=== PATIENT | male | born 2000 | race African-American/Black ===

== ENCOUNTER 2022-12-16 07:40 | Emergency (ER) | payer OTHER ==
--- NOTE | 2022-12-16 08:58 | RAD REPORT ---
EXAM DESCRIPTION: RAD - Chest Pa And Lat (2 Views) - 12/16/2022 8:51 am CLINICAL HISTORY: COUGH Chest pain. COMPARISON: <Comparisons> FINDINGS: The lungs are clear. The heart is normal in size. No displaced fractures. IMPRESSION: No acute or concerning finding suspected.
--- NOTE | 2022-12-16 09:02 | ER ---
Nurse's Notes [facility] Name: Jefferson Yip Age: 22 yrs Sex: Male : 2000 Arrival Date: 12/16/2022 Time: 07:40 Bed 20 Private MD: Diagnosis: Respiratory syncytial virus as the cause of diseases classified elsewhere Presentation: 12/16 07:50 Chief complaint: Patient states: Cough, sore throat, SOB started Tuesday. Coronavirus ll1 screen: Vaccine status: Patient reports receiving the 2nd dose of the covid vaccine. Client denies travel out of the [place] in the last 14 days. cough unrelated to allergies, difficulty breathing, sore throat, Client presents with at least one sign or symptom that may indicate coronavirus-19. Standard/surgical mask placed on the client. Ebola Screen: Patient denies travel to an Ebola-affected area in the 21 days before illness onset. Initial Sepsis Screen: Does the patient meet any 2 criteria? No. Patient's initial sepsis screen is negative. Does the patient have a suspected source of infection? Yes: Productive cough/pneumonia. Risk Assessment: Do you want to hurt yourself or someone else? Patient reports no desire to harm self or others. Onset of symptoms was December 14, 2022. 07:50 Method Of Arrival: Ambulatory ll1 07:50 Acuity: CONCHITA 4 ll1 Triage Assessment: 07:51 General: Appears in no apparent distress. Behavior is calm, cooperative, appropriate ll1 for age. Pain: Complains of pain in throat Quality of pain is described as aching. EENT: Reports nasal congestion pain when swallowing. Neuro: No deficits noted. Cardiovascular: No deficits noted. Respiratory: Reports shortness of breath cough that is. Historical: - Allergies: 07:49 No Known Allergies; ll1 - Home Meds: 07:49 None [Active]; ll1 - PMHx: 07:49 None; ll1 - PSHx: 07:49 None; ll1 - Immunization history:: Client reports receiving the 2nd dose of the Covid vaccine. - Social history:: Smoking status: Patient denies any tobacco usage or history of. Screenin:45 [facility] ED Fall Risk Assessment (Adult) History of falling in the last 3 months, kc6 including since admission No falls in past 3 months (0 pts) Confusion or Disorientation No (0 pts) Intoxicated or Sedated No (0 pts) Impaired Gait No (0 pts) Mobility Assist Device Used No (0 pt) Altered Elimination No (0 pt) Score/Fall Risk Level 0 - 2 = Low Risk Oriented to surroundings, Maintained a safe environment, Educated pt \\T\\ family on fall prevention, incl call for assistance when getting out of bed, Assessed \\T\\ reinforced patient's understanding of fall precautions, Hourly rounding (assess needs \\T\\ fall precautionary measures) done. Abuse screen: Denies threats or abuse. Denies injuries from another. Nutritional screening: No deficits noted. Tuberculosis screening: No symptoms or risk factors identified. Assessment: 07:48 General: Appears in no apparent distress. comfortable, Behavior is calm, cooperative, kc6 appropriate for age. Pain: Complains of pain in "sore throat". Neuro: Malik Agitation-Sedation Scale (RASS): 0 - Alert and Calm Level of Consciousness is awake, alert, obeys commands, Oriented to person, place, time, situation, Appropriate for age. Cardiovascular: Capillary refill < 3 seconds. Respiratory: Reports shortness of breath Airway is patent Trachea midline Respiratory effort is even, unlabored, Respiratory pattern is regular, symmetrical. GI: No signs and/or symptoms were reported involving the gastrointestinal system. : No signs and/or symptoms were reported regarding the genitourinary system. Derm: No signs and/or symptoms reported regarding the dermatologic system. Skin is intact, Skin is pink, warm \\T\\ dry. Musculoskeletal: No signs and/or symptoms reported regarding the musculoskeletal system. Circulation, motion, and sensation intact. Capillary refill < 3 seconds, Range of motion: intact in all extremities. 08:44 Reassessment: Patient appears in no apparent distress at this time. No changes from kc6 previously documented assessment. Patient and/or family updated on plan of care and expected duration. Pain level reassessed. Patient is alert, oriented x 3, equal unlabored respirations, skin warm/dry/pink. Vital Signs: 07:50 BP 125 / 65; Pulse 55; Resp 16; Temp 97.9; Pulse Ox 100% on R/A; Weight 79.83 kg; ll1 Height 6 ft. 1 in. ; 08:44 BP 109 / 69; Pulse 60; Resp 17 S; Pulse Ox 100% on R/A; kc6 07:50 Body Mass Index 23.22 (79.83 kg, 185.42 cm) ll1 ED Course: 07:42 Patient arrived in ED. im 07:45 Keo Masterson MD is Attending Physician. jr11 07:45 Latrice Mcgraw, RN is Primary Nurse. kc6 07:45 Patient has correct armband on for positive identification. Bed in low position. Call kc6 light in reach. Side rails up X 1. 07:50 Arm band placed on. kc6 07:51 Triage completed. ll1 07:59 RSV Sent. kc6 07:59 Influenza Screen (a \\T\\ B) Sent. kc6 07:59 COVID-19 SARS RT PCR Sent. kc6 08:53 Chest Pa And Lat (2 Views) XRAY In Process Unspecified. EDMS 09:09 No provider procedures requiring assistance completed. Patient did not have IV access kc6 during this emergency room visit. Administered Medications: No medications were administered Medication: 09:09 VIS not applicable for this client. kc6 Outcome: 09:02 Discharge ordered by . jr 09:09 Discharged to home ambulatory. kc6 09:09 Condition: stable 09:09 Discharge instructions given to patient, Instructed on discharge instructions, follow up and referral plans. medication usage, Demonstrated understanding of instructions, follow-up care, medications, Prescriptions given X 2. 09:09 Patient left the ED. kc6 Signatures: Dispatcher [employer] EDMS Luis A Wilkerson RN RN ll1 Keo Masterson MD MD jr Latrice Mcgraw RN RN kc6 Amirah Sierra im Corrections: (The following items were deleted from the chart) 08:45 08:44 BP 109 / 6; Pulse 60bpm; Resp 17bpm; Spontaneous; Pulse Ox 100% RA; kc6 kc6
--- NOTE | 2022-12-16 09:02 | EDPHYS ---
Physician Documentation [facility] Name: Jefferson Yip Age: 22 yrs Sex: Male : 2000 Arrival Date: 12/16/2022 Time: 07:40 Bed 20 Private MD: ED Physician Keo Masterson HPI: 12/16 08:23 The patient presents with nasal drainage, that is watery. Onset: The symptoms/episode jr11 began/occurred last night. Modifying factors: The symptoms are alleviated by nothing. the symptoms are aggravated by nothing. Associated signs and symptoms: Pertinent positives: cough, shortness of breath. Severity of symptoms: At their worst the symptoms were moderate in the emergency department the symptoms are unchanged. URI x 2 days, no fever +contacts . Historical: - Allergies: 07:49 No Known Allergies; ll1 - Home Meds: 07:49 None [Active]; ll1 - PMHx: 07:49 None; ll1 - PSHx: 07:49 None; ll1 - Immunization history:: Client reports receiving the 2nd dose of the Covid vaccine. - Social history:: Smoking status: Patient denies any tobacco usage or history of. ROS: 08:23 All other systems are negative. jr11 Exam: 08:23 Constitutional: This is a well developed, well nourished patient who is awake, alert, jr11 and in no acute distress. Head/Face: Normocephalic, atraumatic. Eyes: Extra-ocular motions intact. Lids and lashes normal. Conjunctiva and sclera are non-icteric and not injected. Cornea within normal limits. Periorbital areas with no swelling, redness, or edema. ENT: boggy nasal mucosa, injected OP Chest/axilla: Normal chest wall appearance and motion. Nontender with no deformity. No lesions are appreciated. Cardiovascular: Regular rate and rhythm with a normal S1 and S2. No gallops, murmurs, or rubs. Normal PMI, no JVD. No pulse deficits. Respiratory: Lungs have equal breath sounds bilaterally, clear to auscultation and percussion. No rales, rhonchi or wheezes noted. No increased work of breathing, no retractions or nasal flaring. Abdomen/GI: Soft, non-tender, with normal bowel sounds. No distension or tympany. No guarding or rebound. No evidence of tenderness throughout. Back: No spinal tenderness. No costovertebral tenderness. Full range of motion. Skin: Warm, dry with normal turgor. Normal color with no rashes, no lesions, and no evidence of cellulitis. MS/ Extremity: Pulses equal, no cyanosis. Neurovascular intact. Full, normal range of motion. Vital Signs: 07:50 BP 125 / 65; Pulse 55; Resp 16; Temp 97.9; Pulse Ox 100% on R/A; Weight 79.83 kg; ll1 Height 6 ft. 1 in. ; 08:44 BP 109 / 69; Pulse 60; Resp 17 S; Pulse Ox 100% on R/A; kc6 07:50 Body Mass Index 23.22 (79.83 kg, 185.42 cm) ll1 MDM: 07:49 Patient medically screened. 08:23 Differential diagnosis: +URI, Flu, COVID. Data reviewed: vital signs, nurses notes. 09:00 ED course: Xray interpreted by me shows no PNA . rust 12/16 07:50 Order name: COVID-19 SARS RT PCR; Complete Time: 08:46 12/16 07:50 Order name: Influenza Screen (a \T\ B); Complete Time: 08:46 12/16 07:50 Order name: RSV; Complete Time: 08:46 12/16 07:50 Order name: Chest Pa And Lat (2 Views) XRAY; Complete Time: 09:00 Administered Medications: No medications were administered Disposition Summary: 12/16/22 09:02 Discharge Ordered Location: Home rust Condition: Stable rust Diagnosis - Respiratory syncytial virus as the cause of diseases classified elsewhere jr11 Followup: jr11 - With: Private Physician - When: - Reason: Worsening of condition Discharge Instructions: - Discharge Summary Sheet jr11 - Upper Respiratory Infection, Adult jr11 - Respiratory Syncytial Virus Infection, Adult jr11 Forms: - Medication Reconciliation Form jr11 - Thank You Letter jr11 - Antibiotic Education jr11 - Prescription Opioid Use jr - [email or web address] rust Prescriptions: - albuterol sulfate 90 mcg/actuation Inhalation HFA Aerosol Inhaler - inhale 2 puff by INHALATION route every 4 hours as needed for shortness of jr11 breath or wheezing; 1 unit; Refills: 0, Product Selection Permitted - Tessalon Perles 100 mg Oral Capsule - take 1 capsule by ORAL route every 8 hours As needed; 15 capsule; Refills: 0, jr11 Product Selection Permitted Signatures: Dispatcher [employer] Luis A Banks RN RN ll1 Keo Masterson MD MD jr11
[2022-12-16 09:16] VITALS: TEMP 97.9; O2SAT 100
[2022-12-16 09:18] VITALS: BP 109/69
== END 2022-12-16 09:09 | disposition home or self-care (01) ==
LOC: ER 07:40
DX: R05.9 Cough, unspecified (principal); B97.4 Respiratory syncytial virus as the cause of diseases classified elsewhere; R09.89 Other specified symptoms and signs involving the circulatory and respiratory systems; Z20.822 Contact with and (suspected) exposure to COVID-19
CPT/HCPCS: 71046; 87635; 87804; 87807; 99283

== ENCOUNTER 2023-02-19 05:50 | Emergency (ER) | payer OTHER ==
[2023-02-19 06:13] LABS: Absolute Lymphocytes (CBC) 1.9 K/uL (0.7-4.9); Hematocrit 42.5 % (39.6-49.0); Lymphocytes % 42.9 % (15.3-44.8); MCV 93.4 fL (80-100); MPV 7.2 fL (7.6-11.3); Platelets 252 thou/uL (152-406); RBC Red Blood Cell Count 4.55 M/uL (4.33-5.43)
[2023-02-19] MEDS ORDERED: ASPIRIN 81 MG CHEWABLE TABLET ONE (06:19)
[2023-02-19] MEDS ORDERED: NA CHLORIDE 0.9% 1,000 ML ONE (06:19)
[2023-02-19] MEDS ORDERED: MAGNES/ALUMIN/SIMET 30ML UCUP ONE (06:24)
[2023-02-19] MEDS ORDERED: FAMOTIDINE 20 MG/2 ML VIAL IV ONE (06:24)
[2023-02-19 06:28] LABS: Potassium 3.9 mEq/L (3.5-5.1); Troponin High Sensitivity 3.5 pg/mL (<58.9)
[2023-02-19 07:03] LABS: Barbiturates NEGATIVE (NEGATIVE); Benzodiazepines NEGATIVE (NEGATIVE); Cocaine NEGATIVE (NEGATIVE); METHAMPHETAM NEGATIVE (NEGATIVE); Methadone NEGATIVE (NEGATIVE); Opiates NEGATIVE (NEGATIVE); Phencyclidine NEGATIVE (NEGATIVE); THC Cannibis POSITIVE (NEGATIVE)
--- NOTE | 2023-02-19 07:23 | ER ---
Nurse's Notes [facility] Name: Jefferson Yip Age: 22 yrs Sex: Male : 2000 Arrival Date: 02/19/2023 Time: 05:50 Bed 19 Private MD: Diagnosis: Chest pain, unspecified-NON CARDIAC;Gastro-esophageal reflux disease without esophagitis Presentation: 02/19 05:53 Chief complaint: Patient states: Substernal chest pain of 9 with cough,onset 0300 this pf1 AM. Patient stated did eat spicy food last night. 05:53 Coronavirus screen: Vaccine status: Patient reports receiving the 2nd dose of the covid pf1 vaccine. pfizer Client denies travel out of the [place] in the last 14 days. At this time, the client does not indicate any symptoms associated with coronavirus-19. Ebola Screen: Patient negative for fever greater than or equal to 101.5 degrees Fahrenheit, and additional compatible Ebola Virus Disease symptoms. Initial Sepsis Screen: Does the patient meet any 2 criteria? No. Patient's initial sepsis screen is negative. Does the patient have a suspected source of infection? No. Patient's initial sepsis screen is negative. Risk Assessment: Do you want to hurt yourself or someone else? Patient reports no desire to harm self or others. 05:53 Method Of Arrival: Ambulatory pf1 05:53 Acuity: CONCHITA 3 pf1 06:20 Onset of symptoms was February 19, 2023. lg3 Historical: - Allergies: 06:15 No Known Allergies; pf1 - PMHx: 06:15 None; pf1 - PSHx: 06:15 None; pf1 - Immunization history:: Adult Immunizations up to date, Client reports receiving the 2nd dose of the Covid vaccine, Last tetanus immunization: < 10 years ago Flu vaccine is not up to date. - Social history:: Smoking status: Patient denies any tobacco usage or history of. Patient uses alcohol, occasionally. Patient/guardian denies using street drugs. - Family history:: not pertinent. Screenin:17 [facility] ED Fall Risk Assessment (Adult) History of falling in the last 3 months, lg3 including since admission No falls in past 3 months (0 pts). Abuse screen: Denies threats or abuse. Denies injuries from another. Nutritional screening: No deficits noted. Tuberculosis screening: No symptoms or risk factors identified. Assessment: 06:17 General: Appears in no apparent distress. comfortable, Behavior is calm, cooperative. lg3 Pain: Complains of pain in diaphragm, xiphoid area and mid-sternal area Pain radiates to back Pain began 3 hours ago. Neuro: No deficits noted. Malik Agitation-Sedation Scale (RASS): 0 - Alert and Calm Level of Consciousness is awake, alert, obeys commands, Oriented to person, place, time, situation. Cardiovascular: No deficits noted. Reports chest pain, Capillary refill < 3 seconds Clubbing of nail beds is absent JVD is absent Patient's skin is warm and dry. Rhythm is sinus bradycardia. Respiratory: No deficits noted. Airway is patent Respiratory effort is even, unlabored, Respiratory pattern is regular, symmetrical. GI: No deficits noted. Abdomen is flat, non-distended, Reports epigastric pain. : No deficits noted. No signs and/or symptoms were reported regarding the genitourinary system. EENT: No deficits noted. No signs and/or symptoms were reported regarding the EENT system. Derm: No deficits noted. No signs and/or symptoms reported regarding the dermatologic system. Skin is intact, is healthy with good turgor, Skin is dry, Skin is normal, Skin temperature is warm. Musculoskeletal: No deficits noted. No signs and/or symptoms reported regarding the musculoskeletal system. Circulation, motion, and sensation intact. Range of motion: intact in all extremities. 07:15 Reassessment: Patient appears in no apparent distress at this time. Patient and/or db family updated on plan of care and expected duration. Pain level reassessed. Patient is alert, oriented x 3, equal unlabored respirations, skin warm/dry/pink. General: Appears in no apparent distress. comfortable, Behavior is calm, cooperative. Pain: Complains of pain in chest. Neuro: Level of Consciousness is awake, alert, obeys commands, Oriented to person, place, time, situation. Cardiovascular: Reports chest pain, Rhythm is sinus bradycardia. Respiratory: No deficits noted. Airway is patent Respiratory effort is even, unlabored, Respiratory pattern is regular, symmetrical. Vital Signs: 05:53 BP 116 / 73; Pulse 64; Resp 16; Temp 98; Pulse Ox 100% on R/A; Weight 78.02 kg; Height pf1 6 ft. 1 in. ; Pain 9/10; 07:00 BP 113 / 78; Pulse 56; Resp 16; Pulse Ox 100% on R/A; db 05:53 Body Mass Index 22.69 (78.02 kg, 185.42 cm) pf1 05:53 Pain Scale: Adult pf1 ED Course: 05:53 Patient arrived in ED. mr 06:02 Marko Ma MD is Attending Physician. richard 06:15 Triage completed. pf1 06:17 Bekah Conklin, JANAY is Primary Nurse. lg3 06:17 Patient has correct armband on for positive identification. Placed in gown. Bed in low lg3 position. Call light in reach. Side rails up X 1. Client placed on continuous cardiac and pulse oximetry monitoring. NIBP monitoring applied. roofing technician on. Door closed. Noise minimized. Warm blanket given. 06:17 Inserted saline lock: 20 gauge in right antecubital area, using aseptic technique. lg3 Blood collected. Patient maintains SpO2 saturation greater than 95% on room air. 06:20 Arm band placed on right wrist. lg3 06:48 Chest Pa And Lat (2 Views) XRAY In Process Unspecified. EDMS 07:22 Ilya Wright MD is Referral Physician. richard 07:33 Provided Education on: DISCHARGE. db 07:33 No provider procedures requiring assistance completed. IV discontinued, intact, db bleeding controlled, No redness/swelling at site. Administered Medications: 06:20 Drug: Famotidine IVP 20 mg Route: IVP; Site: right antecubital; lg3 07:34 Follow up: Response: No adverse reaction db 06:21 Drug: Aspirin PO Chewable Tablet 162 mg Route: PO; lg3 07:34 Follow up: Response: No adverse reaction db 06:21 Drug: NS 0.9% IV 1000 ml Route: IV; Rate: 1 bolus; Site: right antecubital; lg3 07:34 Follow up: IV Status: Completed infusion db 06:21 Drug: Alum-Mag Hydroxide-Simeth PO Suspension (200 mg-200 mg-20 mg/5 mL) 30 ml Route: lg3 PO; 07:34 Follow up: Response: No adverse reaction db Medication: 07:15 VIS not applicable for this client. db Outcome: 07:22 Discharge ordered by . richard 07:33 Discharged to home ambulatory. db 07:33 Condition: stable 07:33 Discharge instructions given to patient, Instructed on discharge instructions, follow up and referral plans. Prescriptions given X 1. 07:35 Patient left the ED. db Signatures: Dispatcher [employer] EDMarko Betancourt MD MD cha Rivera Nikky mr Rubin, Bekah, RN RN lg3 Neris Silverio RN RN db Mar Guerrero RN RN pf1
--- NOTE | 2023-02-19 07:23 | EDPHYS ---
Physician Documentation [facility] Name: Jefferson Yip Age: 22 yrs Sex: Male : 2000 Arrival Date: 02/19/2023 Time: 05:50 Bed 19 Private MD: ED Physician Marko Ma HPI: 02/19 07:12 This 22 yrs old Black Male presents to ER via Ambulatory with complaints of Chest Pain. richard 07:12 The patient or guardian reports chest pain that is located primarily in the anterior [facility] chest wall. The pain does not radiate. Associated signs and symptoms: The patient has no apparent associated signs or symptoms. The chest pain is described as sharp. Duration: The patient or guardian reports multiple episodes. Modifying factors: The symptoms are alleviated by nothing. the symptoms are aggravated by nothing. Severity of pain: At its worst the pain was mild in the emergency department the pain is unchanged. The patient has not experienced similar symptoms in the past. Historical: - Allergies: 06:15 No Known Allergies; pf1 - PMHx: 06:15 None; pf1 - PSHx: 06:15 None; pf1 - Immunization history:: Adult Immunizations up to date, Client reports receiving the 2nd dose of the Covid vaccine, Last tetanus immunization: < 10 years ago Flu vaccine is not up to date. - Social history:: Smoking status: Patient denies any tobacco usage or history of. Patient uses alcohol, occasionally. Patient/guardian denies using street drugs. - Family history:: not pertinent. ROS: 07:12 Constitutional: Negative for fever, chills, and weight loss, Eyes: Negative for injury, richard pain, redness, and discharge, ENT: Negative for injury, pain, and discharge, Neck: Negative for injury, pain, and swelling, Respiratory: Negative for shortness of breath, cough, wheezing, and pleuritic chest pain, Abdomen/GI: Negative for abdominal pain, nausea, vomiting, diarrhea, and constipation, Back: Negative for injury and pain, : Negative for injury, bleeding, discharge, and swelling, MS/Extremity: Negative for injury and deformity, Skin: Negative for injury, rash, and discoloration, Neuro: Negative for headache, weakness, numbness, tingling, and seizure, Psych: Negative for depression, anxiety, suicide ideation, homicidal ideation, and hallucinations, Allergy/Immunology: Negative for hives, rash, and allergies, Endocrine: Negative for neck swelling, polydipsia, polyuria, polyphagia, and marked weight changes, Hematologic/Lymphatic: Negative for swollen nodes, abnormal bleeding, and unusual bruising. 07:12 Cardiovascular: Positive for chest pain, of the mid-sternal area. Exam: 07:12 Constitutional: This is a well developed, well nourished patient who is awake, alert, richard and in no acute distress. Head/Face: Normocephalic, atraumatic. Eyes: Pupils equal round and reactive to light, extra-ocular motions intact. Lids and lashes normal. Conjunctiva and sclera are non-icteric and not injected. Cornea within normal limits. Periorbital areas with no swelling, redness, or edema. ENT: Nares patent. No nasal discharge, no septal abnormalities noted. Tympanic membranes are normal and external auditory canals are clear. Oropharynx with no redness, swelling, or masses, exudates, or evidence of obstruction, uvula midline. Mucous membranes moist. Neck: Trachea midline, no thyromegaly or masses palpated, and no cervical lymphadenopathy. Supple, full range of motion without nuchal rigidity, or vertebral point tenderness. No Meningismus. Chest/axilla: Normal chest wall appearance and motion. Nontender with no deformity. No lesions are appreciated. Cardiovascular: Regular rate and rhythm with a normal S1 and S2. No gallops, murmurs, or rubs. Normal PMI, no JVD. No pulse deficits. Respiratory: Lungs have equal breath sounds bilaterally, clear to auscultation and percussion. No rales, rhonchi or wheezes noted. No increased work of breathing, no retractions or nasal flaring. Abdomen/GI: Soft, non-tender, with normal bowel sounds. No distension or tympany. No guarding or rebound. No evidence of tenderness throughout. Back: No spinal tenderness. No costovertebral tenderness. Full range of motion. Male : Normal genitalia with no discharge or lesions. Skin: Warm, dry with normal turgor. Normal color with no rashes, no lesions, and no evidence of cellulitis. MS/ Extremity: Pulses equal, no cyanosis. Neurovascular intact. Full, normal range of motion. Neuro: Awake and alert, GCS 15, oriented to person, place, time, and situation. Cranial nerves II-XII grossly intact. Motor strength 5/5 in all extremities. Sensory grossly intact. Cerebellar exam normal. Normal gait. Psych: Awake, alert, with orientation to person, place and time. Behavior, mood, and affect are within normal limits. 07:12 ECG was reviewed by the Attending Physician. Vital Signs: 05:53 BP 116 / 73; Pulse 64; Resp 16; Temp 98; Pulse Ox 100% on R/A; Weight 78.02 kg; Height pf1 6 ft. 1 in. ; Pain 9/10; 07:00 BP 113 / 78; Pulse 56; Resp 16; Pulse Ox 100% on R/A; db 05:53 Body Mass Index 22.69 (78.02 kg, 185.42 cm) pf1 05:53 Pain Scale: Adult pf1 MDM: 06:02 Patient medically screened. richard 07:15 Differential diagnosis: abnormal EKG, acute pericarditis, chest wall pain, richard Cholelithiasis costochondritis, esophagitis, hiatal hernia, pancreatitis, peptic ulcer disease, pericarditis, pulmonary embolus, stable angina, thoracic aortic disection, unstable angina. HEART Score: History: Slightly Suspicious (0), ECG: Normal (0), Age: < or = 45 years (0), Risk Factors: No Risk Factors Known (0), Troponin: < or = 1 x Normal Limit (0), Total Score = 0. PEDRO Risk Score: TOTAL SCORE = 0. Data reviewed: vital signs, nurses notes, lab test result(s), EKG, radiologic studies, plain films. Consideration of Admission/Observation Escalation of care including admission/observation considered. I considered the following discharge prescriptions or medication management in the emergency department Medications were administered in the Emergency Department. See MAR. Independent interpretation of the following test(s) in the Emergency Department EKG: See my EKG interpretation above. Test considered but Not performed: Ultrasound GB USG. Historians other than the Patient: NONE, PATIENT WELL IN FORMED. Care significantly affected by the following chronic conditions: NONE. Counseling: I had a detailed discussion with the patient and/or guardian regarding the historical points, exam findings, and any diagnostic results supporting the discharge/admit diagnosis, the presence of at least one elevated blood pressure reading (>120/80) during this emergency department visit, radiology results, the need for outpatient follow up, for definitive care, a family practitioner. 02/19 05:56 Order name: Basic Metabolic Panel; Complete Time: 07:08 pf02/19 05:56 Order name: CBC with Diff; Complete Time: 07:08 pf02/19 05:56 Order name: Troponin HS; Complete Time: 07:08 02/19 06:05 Order name: UDS; Complete Time: 07:08 [facility] 02/19 06:05 Order name: Chest Pa And Lat (2 Views) XRAY [facility] 02/19 05:56 Order name: EKG; Complete Time: 05:56 pf02/19 05:56 Order name: Cardiac monitoring; Complete Time: 06:21 pf02/19 05:56 Order name: EKG - Nurse/Tech; Complete Time: 06:21 pf02/19 05:56 Order name: IV Saline Lock; Complete Time: 06:21 pf02/19 05:56 Order name: Labs collected and sent; Complete Time: 06:21 pf02/19 05:56 Order name: O2 Per Protocol; Complete Time: 06:21 02/19 05:56 Order name: O2 Sat Monitoring; Complete Time: 06:21 pf1 EC:12 Rate is 58 beats/min. Rhythm is regular. QRS [place] is Normal. HI interval is normal. QRS richard interval is normal. QT interval is normal. No Q waves. T waves are Normal. No ST changes noted. Clinical impression: NSR w/ Non-specific ST/T Changes and No evidence of ischemia. Interpreted by me. Administered Medications: 06:20 Drug: Famotidine IVP 20 mg Route: IVP; Site: right antecubital; lg3 07:34 Follow up: Response: No adverse reaction db 06:21 Drug: Aspirin PO Chewable Tablet 162 mg Route: PO; lg3 07:34 Follow up: Response: No adverse reaction db 06:21 Drug: NS 0.9% IV 1000 ml Route: IV; Rate: 1 bolus; Site: right antecubital; lg3 07:34 Follow up: IV Status: Completed infusion db 06:21 Drug: Alum-Mag Hydroxide-Simeth PO Suspension (200 mg-200 mg-20 mg/5 mL) 30 ml Route: lg3 PO; 07:34 Follow up: Response: No adverse reaction db Disposition Summary: 02/19/23 07:22 Discharge Ordered Location: Home [facility] Problem: new richard Symptoms: have improved richard Condition: Stable richard Diagnosis - Chest pain, unspecified - NON CARDIAC richard - Gastro-esophageal reflux disease without esophagitis richard Followup: richard - With: Private Physician - When: 2 - 3 days - Reason: Recheck today's complaints, Continuance of care, Re-evaluation by your physician Followup: richard - With: - When: 2 - 3 days - Reason: Recheck today's complaints, Re-evaluation by your physician Discharge Instructions: - Discharge Summary Sheet richard - Nonspecific Chest Pain, Adult richard - Esophagitis richard - Indigestion richard - Nonspecific Chest Pain, Adult, [id number] Forms: - Medication Reconciliation Form [facility] - Thank You Letter richard - Antibiotic Education richard - Prescription Opioid Use richard - Patient Portal Instructions richard - Leadership Thank You Letter richard Prescriptions: - Pepcid 20 mg Oral Tablet - take 1 tablet by ORAL route every 12 hours for 21 days; 42 tablet; Refills: 0, [facility] Product Selection Permitted Signatures: Dispatcher [employer] EDMarko Betancourt MD MD cha Gibson, Lacie, RN RN lg3 Mar Guerrero RN RN pf1 Neris Silverio RN db Corrections: (The following items were deleted from the chart) 06:47 05:56 Chest Single View+[email or web address] ordered. CATAMO SUPRIYA
[2023-02-19 07:42] VITALS: TEMP 98; O2SAT 100
[2023-02-19 07:44] VITALS: BP 113/78
--- NOTE | 2023-02-19 08:19 | RAD REPORT ---
EXAM DESCRIPTION: RAD - Chest Pa And Lat (2 Views) - 02/19/2023 6:46 am CLINICAL HISTORY: CHEST PAIN COMPARISON: Chest Pa And Lat (2 Views) dated 12/16/2022 TECHNIQUE: PA and lateral views of the chest were obtained. FINDINGS: The lungs are clear. Heart size is normal and central vasculature is within normal limits. No pleural effusion or pneumothorax seen. No acute bony finding noted. IMPRESSION: No acute cardiopulmonary process.
--- NOTE | 2023-02-19 14:35 | EKG ---
Test Date: 2023-02-19 Test Time: 06:02:00 [employer] Plasterer: PATY MEASUREMENT RESULTS: Intervals: Rate: 58 MN: 174 QRSD: 90 QT: 386 QTc: 378 [place]: P: 70 MN: 174 QRS: 85 T: 66 INTERPRETIVE STATEMENTS: Sinus bradycardia Early repolarization Otherwise normal ECG No previous ECG available for comparison Electronically Signed On 02-19-23 14:35:27 CDT by Ilya Wright
== END 2023-02-19 07:35 | disposition home or self-care (01) ==
LOC: ER 05:50
DX: K21.9 Gastro-esophageal reflux disease without esophagitis (principal)
CPT/HCPCS: 96361; 93005; 85025; 80048; 36415; 84484; 80307; 71046; 96374; 99285; J7030